=== PATIENT | female | born 1950 | race Caucasian/White ===

== ENCOUNTER 2023-02-22 12:36 | Emergency (ER) | payer MEDICARE, OTHER | END 2023-02-22 15:28 | disposition home or self-care (01) | LOC: JP.ED 12:36 | DX: S52.592A Other fractures of lower end of left radius, initial encounter for closed fracture (principal); Z91.048 Other nonmedicinal substance allergy status; Z88.5 Allergy status to narcotic agent; Z79.82 Long term (current) use of aspirin; W19.XXXA Unspecified fall, initial encounter | CPT/HCPCS: 29125; 73110-26-LT; 73110-LT; 73200-26-LT; 73200-LT; 99284 ==